=== PATIENT | female | born 1940 | race Caucasian/White ===

== ENCOUNTER → 2016-11-18 | Outpatient (REF) | payer MEDICARE ==
[2016-11-18 20:40] LABS: FOLATE > 24.0 NG/ML; VITAMIN B12 LEVEL 386 PG/ML
[2016-11-23 00:07] LABS: VITAMIN E LEVEL 11.5 mg/L (6.5-21.5)
== END ==
LOC: M LABNEURO 18:00
PROVIDERS: ATTEND Psychiatry & Neurology Neurology
DX: R27.0 Ataxia, unspecified (principal)

== ENCOUNTER → 2018-05-08 | Outpatient (REF) | payer MEDICARE | LOC: M LAB REF 14:12 | PROVIDERS: ATTEND Physician Assistant Medical | DX: R19.7 Diarrhea, unspecified (principal) ==

== ENCOUNTER 2018-11-02 07:50 | Day surgery (SDC) | payer MEDICARE ==
[~2018-11-02] VITALS: Ht 167.6 cm; Wt 79.4 kg
[~2018-11-02 07:50] MED LIST: ACET25TA12 PO; CARV6.25 PO; DORZ2SOL5 OU; ESTR62CR PV; FOLI1TAB11 PO; LIDOCAINE 2% INJ 100 MG/5 ML SDV (FOR ANES.) As Ordered ONE; MELA10TA PO; METH25IN12 IM; MULTCAP PO; NS 1,000 ML IV ONE; PANT40TA3 PO; PEG1POW PO; PROPOFOL 200 MG/20 ML VIAL As Ordered ONE; SIMV40TA2 PO
--- NOTE | 2018-11-02 09:05 | ROOR ---
Patient Name: Odette Cochran Procedure Date: 11/02/2018 8:43 AM Date of : 1940 Age: 77 Room: [facility] Gender: Female Note Status: Finalized Procedure: Colonoscopy Indications: Change in bowel habits, Constipation Providers: Chente PERSON MD Referring MD: Irene Nowak MD Requesting Provider: Medicines: Monitored Anesthesia Care Complications: No immediate complications. Procedure: Pre-Anesthesia Assessment: - The heart rate, respiratory rate, oxygen saturations, blood pressure, adequacy of pulmonary ventilation, and response to care were monitored throughout the procedure. The Colonoscope was introduced through the anus and advanced to the terminal ileum, with identification of the appendiceal orifice and IC valve. The colonoscopy was performed without difficulty. The patient tolerated the procedure well. The quality of the bowel preparation was good. Findings: The perianal and digital rectal examinations were normal. A 4 mm polyp was found in the hepatic flexure. The polyp was sessile. The polyp was removed with a cold snare. Resection and retrieval were complete. Multiple small-mouthed diverticula were found in the sigmoid colon. Internal hemorrhoids were found during retroflexion. The hemorrhoids were medium-sized. The exam was otherwise without abnormality on direct and retroflexion views. Impression: - One 4 mm polyp at the hepatic flexure, removed with a cold snare. Resected and retrieved. - Mild diverticulosis in the sigmoid colon. - Moderate Internal hemorrhoids. - The examination was otherwise normal on direct and retroflexion views. Recommendation: - Telephone endoscopist for pathology results in 2 weeks. - If the pathology report reveals adenomatous tissue, then repeat the colonoscopy for surveillance in 5 years. - Continue present medications. Chente Person MD Chente PERSON MD 11/02/2018 9:04:46 AM Electronically signed by Chente PERSON MD Number of Addenda: 0 Note Initiated On: 11/02/2018 8:43 AM Estimated Blood Loss: Estimated blood loss: none.
[2018-11-02 09:40] VITALS: BP 133/67
== END 2018-11-02 09:53 | disposition home or self-care (01) ==
LOC: M OPP 07:50
PROVIDERS: ATTEND Internal Medicine Gastroenterology
DX: D12.3 Benign neoplasm of transverse colon (principal); K64.8 Other hemorrhoids; K59.00 Constipation, unspecified; K57.30 Diverticulosis of large intestine without perforation or abscess without bleeding; Z79.899 Other long term (current) drug therapy

== ENCOUNTER → 2019-03-10 | Outpatient (REF) | payer MEDICARE ==
[~2019-03-10] MED LIST changes: -LIDOCAINE 2% INJ 100 MG/5 ML SDV (FOR ANES.) As Ordered ONE; -NS 1,000 ML IV ONE; -PROPOFOL 200 MG/20 ML VIAL As Ordered ONE
[2019-03-10 14:28] LABS: CREATININE, URINE 32.5 MG/DL; MALB URINE SIEMENS 6.5 MG/L
== END ==
LOC: M LAB REF 13:14
PROVIDERS: ATTEND Family Medicine
DX: E11.9 Type 2 diabetes mellitus without complications (principal)

== ENCOUNTER → 2019-04-01 | Outpatient (REF) | payer MEDICARE ==
[~2019-04-01] MED LIST changes: -SIMV40TA2 PO; +SIMV40TA20 PO
== END ==
LOC: M LAB REF 11:56
PROVIDERS: ATTEND Radiology Diagnostic Radiology
DX: N63.0 Unspecified lump in unspecified breast (principal)

== ENCOUNTER → 2019-04-28 | Outpatient (REF) | payer MEDICARE | LOC: M LAB REF 18:20 | PROVIDERS: ATTEND Radiology Diagnostic Radiology | DX: N63.0 Unspecified lump in unspecified breast (principal) ==

== ENCOUNTER → 2019-07-15 | Outpatient (CLI) | payer MEDICARE ==
--- NOTE | 2019-07-15 12:10 | REP ---
CHEST X-RAY: TWO VIEWS. HISTORY: Preoperative exam. COMPARISON STUDY: October 09, 2010. FINDINGS: Lungs are well inflated and clear. The pleural angles are sharp. Heart size is normal. Pulmonary vasculature is not increased. No significant bony abnormality is seen. IMPRESSION: No active disease. Electronically Signed by Dustin Reed MD 07/15/2019 12:21 P
[2019-07-15 12:43] LABS: BASO % 0.3 % (0.0-1.0); HEMATOCRIT 37.1 % (36.0-47.0); HEMOGLOBIN 12.2 g/dl (12.0-15.5); LYMPH # 1.2 10^3/uL (1.5-5.0); LYMPH % 32.4 % (24.0-44.0); MEAN CORPUSCULAR HEMOGLOBIN 36.1 pg (27.0-33.0); MEAN CORPUSCULAR HGB CONC 32.9 g/dl (32.0-36.5); MEAN CORPUSCULAR VOLUME 109.8 fl (80.0-96.0); MONO # 0.2 10^3/uL (0.0-0.8); MONO % 4.8 % (0.0-5.0); NEUTROPHILS # 2.3 10^3/uL (1.5-8.5); NEUTROPHILS % 62.2 % (36.0-66.0); PLATELET COUNT, AUTOMATED 125 10^3/uL (150-450); RED BLOOD COUNT 3.38 10^6/uL (4.00-5.40); WHITE BLOOD COUNT 3.8 10^3/uL (4.0-10.0)
[2019-07-15 13:18] LABS: ALBUMIN 4.5 GM/DL (3.2-5.2); ALT/SGPT 106 U/L (12-78); BILIRUBIN,TOTAL 0.5 MG/DL (0.2-1.0); BLOOD UREA NITROGEN 11 MG/DL (7-18); CALCIUM LEVEL 9.3 MG/DL (8.8-10.2); CARBON DIOXIDE LEVEL 31 MEQ/L (21-32); CHLORIDE LEVEL 103 MEQ/L (98-107); CREATININE FOR GFR 0.92 MG/DL (0.55-1.30); GLOMERULAR FILTRATION RATE > 60.0 (>39); GLUCOSE, FASTING 121 MG/DL (70-100); POTASSIUM SERUM 4.4 MEQ/L (3.5-5.1); SODIUM LEVEL 140 MEQ/L (136-145); TOTAL PROTEIN 7.4 GM/DL (6.4-8.2)
== END ==
LOC: M WUC 10:42
PROVIDERS: ATTEND Family Medicine
DX: Z00.00 Encounter for general adult medical examination without abnormal findings (principal)

== ENCOUNTER 2019-07-27 06:18 | Day surgery (SDC) | payer MEDICARE ==
[~2019-07-27] VITALS: Ht 165.1 cm; Wt 83.9 kg
[~2019-07-27 06:18] MED LIST changes: +EMLA CREAM 5GM (LIDOCAINE/PRILOCAINE) TOP PRN; +LIDOCAINE 1% MDV 20ML VIAL SQ PRN; +LORA-243 PO; +LR 1,000 ML IV ONE; +MELA3TAB49 PO
[2019-07-27] MEDS ORDERED: LIDOCAINE 1% MDV 20ML VIAL As Ordered ONE (07:54)
[2019-07-27] MEDS ORDERED: SODIUM BICARBONATE 8.4% INJ 50MEQ 50 ML VIAL As Ordered ONE (07:54)
[2019-07-27] MEDS ORDERED: ceFAZolin 2 GM/D5W 50 ML IV BAG (J0690 PER 500MG) As Ordered ONE (09:02)
[2019-07-27] MEDS ORDERED: HEPARIN SOD (PORCINE) 5000 UNITS/ML VIAL (J1644 PER 1000UNITS) As Ordered ONE (09:03)
[2019-07-27] MEDS ORDERED: propofoL 200 MG/20 ML VIAL As Ordered ONE (09:06)
[2019-07-27] MEDS ORDERED: ONDANSETRON 4MG/2ML VIAL (J2405) As Ordered ONE (09:06)
[2019-07-27] MEDS ORDERED: dexameTHASONE 4 MG/ML 1ML VIAL (J1100 PER 1MG) As Ordered ONE (09:06)
[2019-07-27] MEDS ORDERED: MIDAZOLAM INJ 2 MG/2 ML VIAL (J2250) As Ordered ONE (09:06)
[2019-07-27] MEDS ORDERED: fentaNYL 250 MCG/5 ML INJECTION (J3010) As Ordered ONE (09:06)
[2019-07-27] MEDS ORDERED: ROCURONIUM BROMIDE 50 MG/5 ML VIAL As Ordered ONE (09:07)
[2019-07-27] MEDS ORDERED: LIDOCAINE 2% INJ 100 MG/5 ML SDV (FOR ANES.) As Ordered ONE (09:07)
[2019-07-27] MEDS ORDERED: ceFAZolin SOD 2 GM in IV 1 EA IV ONE (09:15)
[2019-07-27] MEDS ORDERED: HEPARIN SOD (PORCINE) 5000 UNITS/ML VIAL (J1644 PER 1000UNITS) SQ ONE (09:15)
[2019-07-27] MEDS ORDERED: BUPIVACAINE HCL 0.25% 30ML VIAL As Ordered ONE (10:56)
[2019-07-27] MEDS ORDERED: LIDOCAINE 1% SDV INJ 30 ML VIAL As Ordered ONE (10:56)
--- NOTE | 2019-07-27 11:12 | REP ---
Left breast localization This procedure is performed by AUSTIN Chappell, under the direct supervision of Dr. Michael. The risks and benefits of the procedure were explained to the patient and informed consent was obtained both verbally and written. Directly prior to the start of the procedure, a formal timeout was done in the procedure room. The lateral medial approach was utilized. The marker clip was localized using mammographic guidance. The skin was prepped and draped in a sterile fashion. 5 ml of 1% lidocaine 10 mg/ml was used as a local anesthetic. A 7 cm [employer] breast lesion localization needle wire system was inserted. Followup mammographic images demonstrate good needle placement. The patient tolerated the procedure well and there were no immediate complications. Reviewed by AUSTIN Hernandez 07/27/2019 10:51 A Electronically Signed by Abdoul Michael MD 07/27/2019 11:02 A
[2019-07-27] MEDS ORDERED: ACETAMINOPHEN 1000MG 100ML IV BTL (OFIRMEV) (J0131 PER 10MG) As Ordered ONE (11:38)
[2019-07-27] MEDS ORDERED: ULTR50TA8 PO (12:55)
[2019-07-27] MEDS ORDERED: ONDANSETRON 4MG/2ML VIAL (J2405) IV PRN (13:00)
[2019-07-27] MEDS ORDERED: oxyCODONE 5MG TAB PO PRN (13:00)
[2019-07-27] MEDS ORDERED: fentaNYL 100 MCG/2 ML INJECTION (J3010) IV PRN (13:00)
[2019-07-27] MEDS ORDERED: LR 1,000 ML IV SCH (13:00)
[2019-07-27] MEDS ORDERED: METOCLOPRAMIDE INJ 10MG/2ML VIAL (J2765) IV PRN (13:00)
[2019-07-27 15:00] VITALS: BP 127/79
--- NOTE | 2019-07-27 17:19 | REP ---
Specimen radiography left breast: Single view. History: Left breast biopsy. Comparison mammography is from earlier this date. Findings: Specimen radiography demonstrates needle wire localization device centrally located in the specimen. Two needle biopsy marker devices are visible within the specimen, both of which are along the wire. Electronically Signed by Dustin Reed MD 07/28/2019 08:57 A
--- NOTE | 2019-07-27 22:11 | ROOPDOC ---
[facility] Report Of Operation Report of Operation DATE OF PROCEDURE: 07/27/19 PREPROCEDURE DIAGNOSES: left atypical ductal hyperplasia POSTPROCEDURE DIAGNOSES: left atypical ductal hyperplasia PROCEDURE: Left excisional biopsy SURGEON: Vinnie Quezada SIGNAL HELPER: Alysia Mcguire ANESTHESIA: general ESTIMATED BLOOD LOSS: Approximately 5 mL. COMPLICATIONS: none REMARKS: both clips and the wire identified in the specimen DESCRIPTION OF PROCEDURE: INDICATIONS: Ms. Cochran is a 78-year-old woman who was found to have a suspicious nodule on mammogram. This was evaluated with US and presumed sonographic correlate was found. US guided biopsy of the nodule was done and came back benign. The marker clip was found to be at different location than the nodule. Second biopsy with stereotactic approach was done later on and came back as atypical ductal hyperplasia. Pathology significance was explained to the patient and she agreed to pursue excisional biopsy of the left breast. She was medically cleared for surgery by her primary care doctor. Risks and possible complications of surgical procedure including bleeding, infection and injury to surrounding structures were explained to the patient and she wished to proceed. Consent was signed. My initials were placed on the operative site. Subcutaneous injection of 5000 units of heparin was done in Pre op. Wire localization was done by Radiology department as the clip which was placed at the time of biopsy is not visible on ultrasound, hence making it impossible for me to localize the area in operating room. Ribbon clip, which was placed during stereotactic biopsy, was the target for localization. DETAILS: Patient was taken to the operating room and placed on the operating room table. A sign in was called stating patients name, date of and the procedure to be done. Preoperative antibiotics were infused. Smooth induction of general anesthesia was done. Patients hands were extended on arm rests. Care was taken not to over extend the arms. Next, patients left breast and axilla were prepped and draped in the usual fashion. Care was taken not to displace the wire. Appropriate time out was done again prior second part of the procedure. Patients name, date of , and the procedure to be done were confirmed. Next, local anesthetic using 1% lidocaine and 0.25 % Marcaine 50/50 mix was injected at the site of planned incision at the lateral aspect of left breast along the trajectory of the wire. The incision was made with the scalpel. Subcutaneous skin flaps were raised and the guide wire was carefully pulled into the wound. Dissection was carries along the wire until the thicker portion of the wire was identified and until previously marked on the skin area of target lesion location was encountered. At this point, wider excision of the tissue surrounding the wire was done. The ribbon clip was not visible on the ultrasound. The previously placed circular clip from discordant ultrasound guided biopsy was encountered during dissection at the superior and posterior aspect of dissection. This clip was also removed with the specimen. The end of the wire was identified with intraoperative ultrasound and transection plane was chosen pass the wire extent. The excisional biopsy specimen was carefully removed from the breast keeping its proper orientation and moved to the back table where margins were marked with the surgical inking kit following the standard colors recommendations. Specimen was then placed on the grid and placed in [employer] Specimen Imaging System. The image revealed the wire and Ribbon clip. It also showed the circular clip at the periphery. The specimen was labeled with patients name and left excisional biopsy and sent to pathology. Next, the wound was irrigated thoroughly. Doctor Maynor's assistance was critical in achieving adequate hemostasis. Additional local anesthetic was injected into surrounding tissues. space was approximated with 3-0 Vicryl. The dermis was closed with 3-0 Monocryl. Surgical glue was placed over the incision. Doctor Maynor's assistance was necessary to progress expeditiously through the case and to decrease anesthesia time. Patient emerged from the anesthesia without any problems. Fluffs were placed over the operative site and patients chest was wrapped snuggly in the SOCORRO wrap. Sponge and instrument counts were done and were correct. Patient tolerated procedure well and was taken to recovery unit in stable condition. VINNIE QUEZADA DO Jul 27, 2019 18:32
== END 2019-07-27 15:30 | disposition home or self-care (01) ==
LOC: M SDC 06:18
PROVIDERS: ATTEND Surgery
DX: N60.82 Other benign mammary dysplasias of left breast (principal); I10 Essential (primary) hypertension; M06.9 Rheumatoid arthritis, unspecified; K21.9 Gastro-esophageal reflux disease without esophagitis; K44.9 Diaphragmatic hernia without obstruction or gangrene; Z79.899 Other long term (current) drug therapy
CPT/HCPCS: 19125; 36415; 86850; 86900; 86901; 88305; J0131; J0690; J1100; J1644; J2250; J2405; J3010

== ENCOUNTER → 2020-03-30 | Outpatient (CLI) | payer MEDICARE ==
[~2020-03-30] MED LIST changes: -EMLA CREAM 5GM (LIDOCAINE/PRILOCAINE) TOP PRN; -LIDOCAINE 1% MDV 20ML VIAL SQ PRN; -LR 1,000 ML IV ONE; +PANT40TA29 PO; -PANT40TA3 PO; +ULTR50TA8 PO
--- NOTE | 2020-03-31 08:48 | REPMRS ---
Patient History The patient states she had a clinical breast exam in March 2020.Patient has history of high-risk lesion on a previous biopsy at age 78 and has history of hyperplasia atypia in the left breast at age 78. No known family history of cancer. High risk radio exam breast specimen of the left breast, July 27, 2019. High risk localization of breast nodule of the left breast, July 27, 2019. Digital Woman Screen Mammo: March 30, 2020 - Exam #: [id number] Bilateral CC and MLO view(s) were taken. Technologist: Libby Ford, Technologist Prior study comparison: March 2019, digital mammo diagnostic bilateral, performed at [facility]. March 27, 2018, bilateral digital mammo screening bilat, performed at [facility]. FINDINGS: The breast tissue is heterogeneously dense. This may lower the sensitivity of mammography. The Volpara volumetric breast density category is: C. The previously noted nodule in the upper outer quadrant of the left breast is no longer apparent. There is a moderate amount of heterogeneously dense fibroglandular tissue which is fairly symmetric. There is no interval development of dominant mass, architectural distortion, or grouped microcalcification typical of malignancy. There has been no change in the appearance of the mammogram from the prior studies. 3-D tomosynthesis shows no additional findings. Assessment: BI-RADS/ACR category 2 mammogram. Benign Findings. Recommendation Routine screening mammogram of both breasts in 1 year (for women over age 40). This patient's [facility] Lifetime Breast Cancer RIsk is estimated at 15.5 %. This mammogram was interpreted with the aid of an FDA-approved computer-aided dectection system. Electronically Signed By: Eliel Reed MD 03/30/20 [id number]
== END ==
LOC: M WHC 11:10
PROVIDERS: ATTEND Nurse Practitioner Family
DX: Z01.419 Encounter for gynecological examination (general) (routine) without abnormal findings (principal); Z12.31 Encounter for screening mammogram for malignant neoplasm of breast; Z12.12 Encounter for screening for malignant neoplasm of rectum
CPT/HCPCS: 77063; 77067; 82270; G0101

== ENCOUNTER 2020-09-26 13:07 | Emergency (ER) | payer MEDICARE ==
[~2020-09-26] VITALS: Ht 167.6 cm; Wt 81.8 kg
[~2020-09-26 13:07] MED LIST changes: -PEG1POW PO; +POLY17PO18 PO
[2020-09-26] MEDS ORDERED: ONDANSETRON 4MG/2ML VIAL IV ONE (13:50)
[2020-09-26] MEDS ORDERED: AZITHROMYCIN INJ 500 MG, VIAL MATE ADAPTER 1 EACH in NS 250 ML IV ONE (14:35)
[2020-09-26] MEDS ORDERED: cefTRIAXone SOD 2 GM in D5W MINI-BAG PLUS 50 ML IV ONE (14:35)
[2020-09-26] MEDS ORDERED: MELA10CA2 PO (14:39)
[2020-09-26] MEDS ORDERED: PRED5TA PO (14:39)
[2020-09-26] MEDS ORDERED: LEUC10TA PO (14:39)
[2020-09-26] MEDS ORDERED: VITMTA PO (14:39)
[2020-09-26 15:06] LABS: MEAN CORPUSCULAR HEMOGLOBIN 39.9 pg (27.0-33.0); MEAN CORPUSCULAR HGB CONC 34.9 g/dl (32.0-36.5); RED BLOOD COUNT 1.63 10^6/uL (4.00-5.40); WHITE BLOOD COUNT 1.4 10^3/uL (4.0-10.0)
[2020-09-26 15:12] LABS: RSV AMPLIFICATION NEGATIVE (NEGATIVE)
[2020-09-26 15:19] LABS: HEMATOCRIT 18.6 % (36.0-47.0); HEMOGLOBIN 6.5 g/dl (12.0-15.5); MEAN CORPUSCULAR VOLUME 114.1 fl (80.0-96.0); PLATELET COUNT, AUTOMATED 43 10^3/uL (150-450)
[2020-09-26 15:22] LABS: INR 1.01; PROTHROMBIN TIME 13.5 SECONDS (12.5-14.3)
[2020-09-26 15:23] LABS: PARTIAL THROMBOPLASTIN TIME 25.2 SECONDS (24.2-38.5)
[2020-09-26 15:26] LABS: ALBUMIN 3.9 GM/DL (3.2-5.2); ALT/SGPT 17 U/L (12-78); BILIRUBIN,DIRECT 0.1 MG/DL (0.0-0.2); BILIRUBIN,TOTAL 0.4 MG/DL (0.2-1.0); BLOOD UREA NITROGEN 9 MG/DL (7-18); CALCIUM LEVEL 7.4 MG/DL (8.8-10.2); CARBON DIOXIDE LEVEL 28 MEQ/L (21-32); CHLORIDE LEVEL 108 MEQ/L (98-107); GLOMERULAR FILTRATION RATE > 60.0 (>39); GLUCOSE, FASTING 145 MG/DL (70-100); LIPASE 93 U/L (73-393); POTASSIUM SERUM 3.2 MEQ/L (3.5-5.1); SODIUM LEVEL 143 MEQ/L (136-145)
[2020-09-26 15:52] LABS: LYMPHOCYTES 70 % (16-44); NEUTROPHILS 18 % (28-66)
[2020-09-26 15:53] LABS: ATYPICAL LYMPH 5 % (0-5); BLAST CELLS 7 % (0-0); PLATELET ESTIMATE DECREASED (NORMAL)
[2020-09-26 15:55] LABS: OVALOCYTES 1+; TEAR DROP CELLS 1+
[2020-09-26 15:56] LABS: POIKILOCYTOSIS 1+
[2020-09-26 16:27] LABS: FERRITIN 364 NG/ML (8-252); IRON (FE) 269 UG/DL (50-170); PERCENT SATURATION 90.9 % (13.2-45.0); TOTAL IRON BINDING CAPACITY 296 UG/DL (250-450)
[2020-09-26 17:20] LABS: VITAMIN B12 LEVEL 232 PG/ML (247-911)
[2020-09-26 17:33] VITALS: BP 137/68
--- NOTE | 2020-09-26 17:39 | ECGEPIP ---
[facility] - ED Test Date: 2020-09-26 Pat Name: LORENA GALVAN Department: Room: - Gender: Female Wood [employer]: CAS : 1940 Requested By: Frederic Gee Order Number: [id number] Reading MD: Hilary Melvin Measurements Intervals [place] Rate: 71 P: 56 [place]: 136 QRS: 13 QRSD: 80 T: 38 QT: 442 QTc: 480 Interpretive Statements Normal sinus rhythm prolonged qtc NSTTW abnormalities No prior Electronically Signed on 09-26-2020 17:39:40 EDT by Hilary Melvin
[2020-09-26 17:47] VITALS: BP 135/66
[2020-09-26 17:48] LABS: FOLATE > 24.0 NG/ML (>5.4)
[2020-09-26 18:32] VITALS: BP 150/71
[2020-09-26 19:42] VITALS: BP 132/69
== END 2020-09-26 19:44 | disposition short-term general hospital (02) ==
LOC: M ED 13:07
DX: C95.00 Acute leukemia of unspecified cell type not having achieved remission (principal); D61.818 Other pancytopenia; R79.9 Abnormal finding of blood chemistry, unspecified; E78.5 Hyperlipidemia, unspecified; Z79.52 Long term (current) use of systemic steroids; Z79.899 Other long term (current) drug therapy
CPT/HCPCS: 36430; 80048; 80076; 82607; 82728; 82746; 83550; 83690; 85025; 85049; 85055; 85610; 85730; 86850; 86900; 86901; 86920; 87631; 93005; 93041; 96374; 99285; J2405; P9016

== ENCOUNTER → 2021-01-24 | Outpatient (CLI) | payer MEDICARE ==
[~2021-01-24] MED LIST changes: +ACET650T61 PO; +ACYC1TAB; +COLA100C5 PO; +COVI30VI IM; +DICL1GEL3; +LEUC10TA PO; +LEVO500T3; +LIDOCAINE 1% MDV 20ML VIAL As Ordered ONE; +LOPE1CAP5; +MEGE40SU5; +MELA10CA2 PO; +MIDAZOLAM INJ 2MG/2ML VIAL (J2250 PER 1MG) As Ordered ONE; +MIDO5TA; +NS 1,000 ML IV SCH; +ONDA8TAB10 PO; +POSA100T; +PRED5TA PO; +PROBCAP14 PO; +PROC10TA4 PO; +SERT50TA29; +VENC100T PO; +VITMTA PO; +ceFAZolin 2 GM/D5W 50 ML IV BAG (J0690 PER 500MG) As Ordered ONE; +ceFAZolin SOD 2 GM in IV 1 EA IV ONE; +diphenhydrAMINE 50MG/ML VIAL (J1200) As Ordered ONE; +fentaNYL 100 MCG/2 ML INJECTION (J3010) As Ordered ONE
--- NOTE | 2021-01-24 14:42 | IRHP ---
[facility] IR Pre-Procedure H & P General Date of Service: Jan 24, 2021 Procedure: Same Day Surgery Interval History and Physical I have seen the patient and reviewed last H & P performed within 30 days. There is no significant interval change. History of Present Illness Chief Complaint The patient is a 80-year-old female admitted with a reason for visit of Leukemia. PRE-PROCEDURE DIAGNOSIS: Leukemia HEART: Normal rate. LUNGS: Normal breathing at rest. ASA Classification ASA Classification: II-Mild systemic disease Mallampati Score: II NPO: Yes Problems with prior sedation: No Obstructive Sleep Apnea: No Plan moderate sedation Allergies Coded Allergies: transparent dressing (Verified Allergy, Intermediate, rash, 07/20/19) ENVIROMENTAL (Verified Allergy, Unknown, 07/20/19) Home Medications Scheduled Acetaminophen (Tylenol Arthritis), 500 MG PO QHS, (Reported) Docusate Sodium (Colace), 1 CAP PO DAILY, (Reported) Lactobacillus Acidophilus (Probiotic), 1 CAP PO DAILY, (Reported) Pantoprazole Sodium (Pantoprazole Sodium), 40 MG PO DAILY, (Reported) Miscellaneous Medications Covid-19 Vacc, Mrna(DNA Direct)/Pf (DNA Direct Covid19 Vacc (Unapprov)), 30 MCG IM, (Reported) Discontinued Medications Acyclovir (Acyclovir), (Reported) Discontinued Reason: Pt states not taking Diclofenac Sodium (Diclofenac Sodium), (Reported) Discontinued Reason: Pt states not taking Levofloxacin (Levofloxacin), (Reported) Discontinued Reason: Pt states not taking Loperamide HCl (Loperamide), (Reported) Discontinued Reason: PCP discontinued med Midodrine HCl (Midodrine HCl), (Reported) Discontinued Reason: Pt states not taking Ondansetron HCl (Ondansetron HCl), 8 MG PO Q8HP PRN for NAUSEA OR VOMITING Discontinued Reason: Pt states not taking Posaconazole (Posaconazole), (Reported) Discontinued Reason: Pt states not taking Prochlorperazine Maleate (Prochlorperazine Maleate), 10 MG PO Q8HP PRN for NAUSEA OR VOMITING Discontinued Reason: Pt states not taking Sertraline HCl (Sertraline HCl), (Reported) Discontinued Reason: Pt states not taking VS, I&O, 24H, Fishbone Vital Signs/I&O Vital Signs Date Time Temp Pulse Resp B/P (MAP) Pulse Ox O2 Delivery O2 Flow Rate FiO2 01/24/21 13:37 97.6 98 20 99 Room Air PATIENCE WHITE MD Jan 24, 2021 14:42
[2021-01-24 17:40] VITALS: BP 138/60
--- NOTE | 2021-01-25 16:15 | IRPON ---
IR Postoperative Note Date Of Procedure: Jan 24, 2021 Time Of Procedure: 16:00 IR Postoperative Note IR Ultrasound and fluoroscopy guided port placement IR Ultrasound of the neck. IR Moderate sedation. Clinical indication: Leukemia. Physician: Dr. Phelan. Procedure: The patient was advised of the benefits, risks, and alternatives of the procedure and informed consent was obtained. A time-out was performed with verification of the patient's name, MRN, site of procedure and type of procedure to be performed. The patient was positioned in the supine position on the angiographic table. The site was prepped and draped in the usual sterile fashion. Moderate sedation was performed by the physician including the presence of an independent trained RN who assisted and monitored the patient's level of consciousness and physiologic status. Following the administration of fentanyl and Versed , the physician spent 45 minutes of continuous face to face time with the patient. Ultrasound of the neck reveals a patent and compressible right internal jugular vein. A client integration manager radiograph reveals no gross abnormality. The neck and anterior chest wall were anesthetized with lidocaine. The right internal jugular vein was accessed using a microintroducer needle under ultrasound guidance, via a lateral approach. An 018 wire was advanced into the superior vena cava, the needle was removed and a microsheath was placed. An Amplatz wire was then passed into the inferior vena cava. An incision at the internal jugular vein access site and anterior chest wall were made using a scalpel. An incision was made at the anterior chest wall. A small pocket was created using a combination of blunt and sharp dissection. A tunneling device was then used to pass the catheter from the pocket to the neck puncture site. An 8- Setswana Angio [employer] Smart power port was then positioned in the pocket. The catheter was then measured and cut. The introducer sheath was exchanged for a peel-away sheath. The catheter was passed through the peel-away sheath into the internal jugular vein and the peel-away sheath was removed. The port tip was positioned at the cavoatrial junction. The port was then accessed with a Cisneros needle. The port flushes and aspirates well. The puncture site in the neck was closed. The chest wall incision was then closed with 2-0 Vicryl and 4-0 Monocryl. Glue and Steri- Strips were applied. A sterile dressing was then applied. The patient tolerated the procedure well and was returned to the PRU in stable condition. Estimated blood loss: <5 ml. Complications: None. Conclusion: 1. Successful placement of an 8-Setswana Angio dynamics Smart power port via the right internal jugular vein. The port is ready for immediate use. 2. Patient to follow up in IR clinic in 2 weeks. Thank you for this referral. PATIENCE PHELAN MD Jan 25, 2021 16:15
== END ==
LOC: M IRPRO 11:28
PROVIDERS: ATTEND Specialist
DX: C95.90 Leukemia, unspecified not having achieved remission (principal); Z91.09 Other allergy status, other than to drugs and biological substances; Z91.048 Other nonmedicinal substance allergy status
CPT/HCPCS: 36561; 99152; 99153; C1769; C1788; C1894; J0690; J1200; J1642; J1644; J2250; J3010

== ENCOUNTER → 2021-02-13 | Outpatient (POV) | payer MEDICARE ==
[~2021-02-13] VITALS: Ht 165.1 cm; Wt 77.7 kg
[~2021-02-13] MED LIST changes: +ALLO300T2 PO; -LIDOCAINE 1% MDV 20ML VIAL As Ordered ONE; -MIDAZOLAM INJ 2MG/2ML VIAL (J2250 PER 1MG) As Ordered ONE; -NS 1,000 ML IV SCH; -ceFAZolin 2 GM/D5W 50 ML IV BAG (J0690 PER 500MG) As Ordered ONE; -ceFAZolin SOD 2 GM in IV 1 EA IV ONE; -diphenhydrAMINE 50MG/ML VIAL (J1200) As Ordered ONE; -fentaNYL 100 MCG/2 ML INJECTION (J3010) As Ordered ONE
[2021-02-13 12:47] VITALS: BP 139/84
--- NOTE | 2021-02-15 12:46 | IRPN ---
[facility] IR Progress Note IR Progress Note DATE: Feb 13, 2021 FOLLOW-UP: Doing well status post port placement. Patient denies fevers, chills, pain or discharge at site. Port used without any issues. ON EXAMINATION: Port site appears to be healing well. No redness, swelling or fluctuance at the site. IMPRESSION: Doing well status post port placement. No further follow-up scheduled unless initiated by patient and/or referring provider. Thank you for this referral Allergies Coded Allergies: transparent dressing (Verified Allergy, Intermediate, rash, 07/20/19) ENVIROMENTAL (Verified Allergy, Unknown, 07/20/19) VS,Fishbone, I+O VS, Fishbone, I+O Vital Signs Date Time Temp Pulse Resp B/P (MAP) Pulse Ox O2 Delivery O2 Flow Rate FiO2 02/13/21 12:47 97.5 102 20 139/84 (102) 96 Room Air PATIENCE WHITE MD Feb 15, 2021 12:46
== END ==
LOC: M IRPOV 12:16
PROVIDERS: ATTEND Radiology Diagnostic Radiology
DX: Z45.2 Encounter for adjustment and management of vascular access device (principal)

== ENCOUNTER 2021-03-14 16:29 | Emergency (ER) | payer MEDICARE, BC ==
[~2021-03-14] VITALS: Ht 165.1 cm; Wt 75.5 kg
[~2021-03-14 16:29] MED LIST changes: +HYDR-3363 PO; -LEVO500T3; +LEVO500T4; +ONDA-84 PO; -ONDA8TAB10 PO; -PROC10TA4 PO; +PROC10TA5 PO; +SERT-141 PO
[2021-03-14] MEDS ORDERED: SODIUM CHLORIDE 0.9% INJ 10 ML SYR IV PRN (18:15)
[2021-03-14 18:25] LABS: HEMATOCRIT 26.7 % (36.0-47.0); HEMOGLOBIN 9.2 g/dl (12.0-15.5); MEAN CORPUSCULAR HEMOGLOBIN 34.8 pg (27.0-33.0); MEAN CORPUSCULAR HGB CONC 34.5 g/dl (32.0-36.5); MEAN CORPUSCULAR VOLUME 101.1 fl (80.0-96.0); RED BLOOD COUNT 2.64 10^6/uL (4.00-5.40); WHITE BLOOD COUNT 1.5 10^3/uL (4.0-10.0)
[2021-03-14 18:30] LABS: PLATELET COUNT, AUTOMATED 42 10^3/uL (150-450)
[2021-03-14 19:17] LABS: BLOOD UREA NITROGEN 13 MG/DL (7-18); CALCIUM LEVEL 9.2 MG/DL (8.8-10.2); CARBON DIOXIDE LEVEL 25 MEQ/L (21-32); CHLORIDE LEVEL 109 MEQ/L (98-107); CREATININE FOR GFR 0.81 MG/DL (0.55-1.30); GLOMERULAR FILTRATION RATE > 60.0 (>39); GLUCOSE, FASTING 92 MG/DL (70-100); MAGNESIUM LEVEL 1.7 MG/DL (1.8-2.4); POTASSIUM SERUM 3.8 MEQ/L (3.5-5.1); SODIUM LEVEL 141 MEQ/L (136-145)
[2021-03-14 19:44] LABS: LYMPHOCYTES 99 % (16-44); NEUTROPHILS 1 % (28-66)
[2021-03-14 19:45] LABS: OVALOCYTES 1+; PLATELET ESTIMATE MARKED DECREASE (NORMAL); POIKILOCYTOSIS 1+
[2021-03-14] MEDS ORDERED: MAGNESIUM OXIDE 400MG TAB (MAG-OX) PO ONE (21:55)
[2021-03-14 22:29] VITALS: BP 122/70
[2021-03-22] MEDS ORDERED: ZOVI5CRE4 TOP (13:38)
[2021-03-22] MEDS ORDERED: FLUC100T3 PO (13:41)
[2021-05-11] MEDS ORDERED: AMIO200T49 PO (11:04)
[2021-06-04] MEDS ORDERED: AMIO200T37 PO (08:57)
== END 2021-03-14 22:33 | disposition home or self-care (01) ==
LOC: M ED 16:29
DX: I49.9 Cardiac arrhythmia, unspecified (principal); E83.42 Hypomagnesemia; C92.01 Acute myeloblastic leukemia, in remission; I10 Essential (primary) hypertension; E78.5 Hyperlipidemia, unspecified; J30.89 Other allergic rhinitis; Z87.09 Personal history of other diseases of the respiratory system; Z79.899 Other long term (current) drug therapy; Z91.89 Other specified personal risk factors, not elsewhere classified

== ENCOUNTER → 2021-04-02 | Outpatient (CLI) | payer MEDICARE ==
[~2021-04-02] MED LIST changes: +AMIO200T37 PO; +AMIO200T49 PO; +FLUC100T3 PO; +ZOVI5CRE4 TOP
== END ==
LOC: M WHC 12:34
PROVIDERS: ATTEND Surgery
DX: Z12.31 Encounter for screening mammogram for malignant neoplasm of breast (principal); N60.92 Unspecified benign mammary dysplasia of left breast; Z92.21 Personal history of antineoplastic chemotherapy; Z86.018 Personal history of other benign neoplasm; R92.1 Mammographic calcification found on diagnostic imaging of breast

== ENCOUNTER → 2021-04-02 | Outpatient (CLI) | payer MEDICARE | LOC: M PLAIMG 15:04 | PROVIDERS: ATTEND Nurse Practitioner Family | DX: M51.36 Other intervertebral disc degeneration, lumbar region (principal); M85.852 Other specified disorders of bone density and structure, left thigh; Z96.643 Presence of artificial hip joint, bilateral ==

== ENCOUNTER → 2021-04-05 | Outpatient (CLI) | payer MEDICARE, BC ==
[~2021-04-05] MED LIST changes: -AMIO200T37 PO; -AMIO200T49 PO; +FLUC100T PO; -FLUC100T3 PO; +LEVO500T3; -LEVO500T4; +LIDOCAINE 1% MDV 20ML VIAL As Ordered ONE; -ONDA-84 PO; +ONDA8TAB10 PO; +PROC10TA4 PO; -PROC10TA5 PO
[2021-04-05 12:15] LABS: HEMATOCRIT 23.7 % (36.0-47.0); MEAN CORPUSCULAR HEMOGLOBIN 35.7 pg (27.0-33.0); MEAN CORPUSCULAR HGB CONC 33.8 g/dl (32.0-36.5); MEAN CORPUSCULAR VOLUME 105.8 fl (80.0-96.0); RED BLOOD COUNT 2.24 10^6/uL (4.00-5.40); WHITE BLOOD COUNT 1.7 10^3/uL (4.0-10.0)
[2021-04-05 12:58] LABS: PLATELET COUNT, AUTOMATED 19 10^3/uL (150-450)
[2021-04-05 13:00] LABS: ANISOCYTOSIS 1+; LYMPHOCYTES 74 % (16-44); NEUTROPHILS 26 % (28-66); PLATELET ESTIMATE MARKED DECREASE (NORMAL)
[2021-04-05 14:00] VITALS: BP 103/57
--- NOTE | 2021-04-05 17:56 | REP ---
INDICATION: LEUKEMIA. COMPARISON: None. TECHNIQUE: The procedure was procedure performed under the direct supervision of Dr. Lozano. The risks and benefits of the procedure were explained to the patient and informed consent was obtained. The right iliac bone was localized using CT guidance. The skin was prepped and draped in a sterile fashion. 6 mL of 1% lidocaine was used as local anesthetic. Using CT guidance an 11 gauge bone marrow biopsy system was inserted. 10 mL of marrow fluid was withdrawn. One core biopsy sample was then obtained. Estimated blood loss: Less than 1 mL The patient tolerated the procedure well and there were no immediate complications. After the appropriate amount to monitored convalescence the patient was discharged from the department. FINDINGS: None IMPRESSION: CT-guided right iliac bone marrow biopsy. <Electronically signed by Don Hull > 04/05/21 [id number] <Electronically signed by Mich Lozano > 04/05/21 [id number]
== END ==
LOC: M IRPRO 11:44
PROVIDERS: ATTEND Specialist
DX: C95.90 Leukemia, unspecified not having achieved remission (principal)

== ENCOUNTER → 2021-08-09 | Outpatient (CLI) | payer MEDICARE, BC ==
[~2021-08-09] MED LIST changes: +AMIO200T37 PO; +AMIO200T49 PO; -FLUC100T PO; +FLUC100T3 PO; -LEVO500T3; +LEVO500T4; +ONDA-84 PO; -ONDA8TAB10 PO; +PERC5TAB12 PO; -PROC10TA4 PO; +PROC10TA5 PO
[2021-08-09 13:08] LABS: HEMATOCRIT 30.7 % (36.0-47.0); HEMOGLOBIN 10.2 g/dl (12.0-15.5); MEAN CORPUSCULAR HEMOGLOBIN 36.8 pg (27.0-33.0); MEAN CORPUSCULAR HGB CONC 33.2 g/dl (32.0-36.5); MEAN CORPUSCULAR VOLUME 110.8 fl (80.0-96.0); RED BLOOD COUNT 2.77 10^6/uL (4.00-5.40); WHITE BLOOD COUNT 1.9 10^3/uL (4.0-10.0)
[2021-08-09 13:11] LABS: PLATELET COUNT, AUTOMATED 85 10^3/uL (150-450)
[2021-08-09 13:34] VITALS: BP 141/64
[2021-08-09 13:51] LABS: ATYPICAL LYMPH 1 % (0-5); EOSINOPHILS 1 % (0-3); LYMPHOCYTES 52 % (16-44); MONOCYTES 5 % (0-5); NEUTROPHILS 39 % (28-66)
[2021-08-09 13:52] LABS: OVALOCYTES 2+; TEAR DROP CELLS 1+
[2021-08-09 13:53] LABS: MICROCYTOSIS 1+; PLATELET ESTIMATE DECREASED (NORMAL)
== END ==
LOC: M IRPRO 12:02
PROVIDERS: ATTEND Specialist
DX: C92.00 Acute myeloblastic leukemia, not having achieved remission (principal)

== ENCOUNTER → 2021-09-05 | Outpatient (REF) | payer MEDICARE, BC ==
[~2021-09-05] MED LIST changes: -LIDOCAINE 1% MDV 20ML VIAL As Ordered ONE
== END ==
LOC: M LAB REF 11:34
PROVIDERS: ATTEND Family Medicine
DX: I48.0 Paroxysmal atrial fibrillation (principal)

== ENCOUNTER → 2021-09-12 | Outpatient (CLI) | payer MEDICARE, BC | LOC: M WUC 14:38 | PROVIDERS: ATTEND Physician Assistant | DX: I48.0 Paroxysmal atrial fibrillation (principal) ==

== ENCOUNTER 2021-09-26 10:59 | Outpatient (CLI) | payer MEDICARE, BC ==
[~2021-09-26] VITALS: Ht 167.6 cm; Wt 84.1 kg
[2021-09-26] MEDS ORDERED: TIXAGEVIMAB/CILGAVIMAB (EVUSHELD) 150MG-150MG 3ML VIAL (EUA) IM NO SITE ONE (11:30)
[2021-09-26 11:33] VITALS: BP 173/77
[2021-09-26 12:36] VITALS: BP 127/66
== END 2021-09-26 12:40 | disposition home or self-care (01) ==
LOC: M INFU 10:59
PROVIDERS: ATTEND Internal Medicine Hematology & Oncology
DX: C92.50 Acute myelomonocytic leukemia, not having achieved remission (principal); Z88.1 Allergy status to other antibiotic agents

== ENCOUNTER → 2021-10-12 | Outpatient (CLI) | payer MEDICARE, BC ==
[~2021-10-12] MED LIST changes: +DOXY100T27
== END ==
LOC: M RAD 07:32
PROVIDERS: ATTEND Orthopaedic Surgery Hand Surgery
DX: S93.402D Sprain of unspecified ligament of left ankle, subsequent encounter (principal); W18.30XD Fall on same level, unspecified, subsequent encounter

== ENCOUNTER → 2022-03-04 | Outpatient (CLI) | payer MEDICARE, BC ==
[~2022-03-04] MED LIST changes: +LEVO1TAB39; -LEVO500T4
[2022-03-04 18:59] LABS: ALBUMIN 4.2 GM/DL (3.2-5.2); BILIRUBIN,TOTAL 0.3 MG/DL (0.2-1.0); CALCIUM LEVEL 9.4 MG/DL (8.8-10.2); CREATININE FOR GFR 1.05 MG/DL (0.55-1.30); GLOMERULAR FILTRATION RATE 53.8 (>39); MAGNESIUM LEVEL 2.1 MG/DL (1.8-2.4); POTASSIUM SERUM 4.4 MEQ/L (3.5-5.1); THYROID STIMULATING HORMONE 1.97 uIU/ML (0.358-3.740); TOTAL PROTEIN 7.5 GM/DL (6.4-8.2)
== END ==
LOC: M WUC 12:57
PROVIDERS: ATTEND Physician Assistant
DX: I48.0 Paroxysmal atrial fibrillation (principal)

== ENCOUNTER → 2022-03-13 | Outpatient (CLI) | payer MEDICARE, BC | LOC: M PLAIMG 10:29 | PROVIDERS: ATTEND Physician Assistant | DX: I48.0 Paroxysmal atrial fibrillation (principal) ==

== ENCOUNTER → 2022-07-24 | Outpatient (CLI) | payer MEDICARE, BC ==
[~2022-07-24] MED LIST changes: -MELA10TA PO; +MELATONIN CR10 MG PO; +NETA2.5D2 OP; +XALA0.007 OP
== END ==
LOC: M WHC 10:16
PROVIDERS: ATTEND Nurse Practitioner Women's Health
DX: Z12.31 Encounter for screening mammogram for malignant neoplasm of breast (principal)

== ENCOUNTER → 2022-08-05 | Outpatient (CLI) | payer MEDICARE, BC ==
[2022-08-05 17:34] LABS: ALBUMIN 4.2 G/DL (3.2-5.2); BILIRUBIN,TOTAL 0.4 MG/DL (0.3-1.2); CALCIUM LEVEL 9.2 MG/DL (8.3-10.6); CREATININE FOR GFR 0.98 MG/DL (0.55-1.30); GLOMERULAR FILTRATION RATE 58.3 (>39); MAGNESIUM LEVEL 1.8 MG/DL (1.8-2.4); POTASSIUM SERUM 4.4 MMOL/L (3.5-5.1); TOTAL PROTEIN 7.4 G/DL (5.7-8.2)
[2022-08-05 17:37] LABS: THYROID STIMULATING HORMONE 3.404 uIU/ML (0.55-4.78)
== END ==
LOC: M PLALAB 12:37
PROVIDERS: ATTEND Physician Assistant
DX: I48.0 Paroxysmal atrial fibrillation (principal)

== ENCOUNTER → 2022-09-19 | Outpatient (REF) | payer MEDICARE, BC | LOC: M LAB REF 16:50 | PROVIDERS: ATTEND Nurse Practitioner Family | DX: R30.0 Dysuria (principal); R31.9 Hematuria, unspecified ==

== ENCOUNTER → 2022-10-16 | Outpatient (CLI) | payer MEDICARE, BC ==
[~2022-10-16] MED LIST changes: +BACTDSTA; +TRAZ-252
[2022-10-16 18:39] LABS: BASO % 0.4 % (0.0-1.0); HEMATOCRIT 36.9 % (36.0-47.0); LYMPH # 1.3 10^3/uL (1.5-5.0); LYMPH % 49.8 % (24.0-44.0); MEAN CORPUSCULAR HEMOGLOBIN 34.5 pg (27.0-33.0); MEAN CORPUSCULAR HGB CONC 32.5 g/dl (32.0-36.5); MONO # 0.2 10^3/uL (0.0-0.8); MONO % 6.8 % (2.0-8.0); NEUTROPHILS # 1.1 10^3/uL (1.5-8.5); NEUTROPHILS % 42.6 % (36.0-66.0); RED BLOOD COUNT 3.48 10^6/uL (4.00-5.40); WHITE BLOOD COUNT 2.6 10^3/uL (4.0-10.0)
[2022-10-16 18:44] LABS: LDH LACTATE DEHYDROGENASE 240 U/L (120-246)
[2022-10-16 18:45] LABS: ALKALINE PHOSPHATASE 106 U/L (46-116); ALT/SGPT 71 U/L (7.0-40); AST/SGOT 45 U/L (<34); BILIRUBIN,TOTAL 0.4 MG/DL (0.3-1.2); BLOOD UREA NITROGEN 13 MG/DL (9-23); CALCIUM LEVEL 9.8 MG/DL (8.3-10.6); CARBON DIOXIDE LEVEL 28 MMOL/L (20-31); CHLORIDE LEVEL 106 MMOL/L (98-107); CREATININE FOR GFR 0.91 MG/DL (0.55-1.30); GLOMERULAR FILTRATION RATE > 60.0 (>39); GLUCOSE, FASTING 92 MG/DL (74-106); POTASSIUM SERUM 4.1 MMOL/L (3.5-5.1); SODIUM LEVEL 137 MMOL/L (136-145); TOTAL PROTEIN 6.7 G/DL (5.7-8.2)
[2022-10-16 18:54] LABS: PLATELET COUNT, AUTOMATED 74 10^3/uL (150-450)
== END ==
LOC: M PLALAB 15:29
PROVIDERS: ATTEND Internal Medicine
DX: C92.00 Acute myeloblastic leukemia, not having achieved remission (principal)

== ENCOUNTER 2022-11-19 13:43 | Emergency (ER) | payer MEDICARE, BC ==
[~2022-11-19] VITALS: Ht 167.6 cm; Wt 85.5 kg
[~2022-11-19 13:43] MED LIST changes: +DICL100G10; -DICL1GEL3; +HYDR-3363; +[UNRECOGNIZED DRUG - CODE] IV
[2022-11-19] MEDS ORDERED: NS 500 ML IV ONE ×2 (14:35→20:00)
[2022-11-19 16:04] LABS: HEMATOCRIT 31.3 % (36.0-47.0); HEMOGLOBIN 10.5 g/dl (12.0-15.5); MEAN CORPUSCULAR HEMOGLOBIN 34.1 pg (27.0-33.0); MEAN CORPUSCULAR HGB CONC 33.5 g/dl (32.0-36.5); MEAN CORPUSCULAR VOLUME 101.6 fl (80.0-96.0); RED BLOOD COUNT 3.08 10^6/uL (4.00-5.40); WHITE BLOOD COUNT 4.3 10^3/uL (4.0-10.0)
[2022-11-19 16:15] LABS: PLATELET COUNT, AUTOMATED 33 10^3/uL (150-450)
[2022-11-19 16:18] LABS: LYMPHOCYTES 15 % (16-44); MONOCYTES 3 % (0-5); NEUTROPHILS 80 % (28-66); PLATELET ESTIMATE MARKED DECREASE (NORMAL)
[2022-11-19 16:26] LABS: ALBUMIN 3.1 G/DL (3.2-5.2); BILIRUBIN,DIRECT 0.4 MG/DL (<0.4); BILIRUBIN,TOTAL 0.9 MG/DL (0.3-1.2); CALCIUM LEVEL 8.5 MG/DL (8.3-10.6); CREATININE FOR GFR 1.3 MG/DL (0.55-1.30); GLOMERULAR FILTRATION RATE 42.1 (>39); POTASSIUM SERUM 3.8 MMOL/L (3.5-5.1); TOTAL PROTEIN 6.2 G/DL (5.7-8.2)
[2022-11-19] MEDS ORDERED: ACETAMINOPHEN 1000MG 100ML IV BAG IV ONE (18:00)
[2022-11-19] MEDS ORDERED: LevoFLOXacin IV 750 MG in IV 1 EA IV ONE (18:00)
[2022-11-19] MEDS ORDERED: MORPHINE 2 MG/ML 1ML VIAL IV PRN (18:00)
[2022-11-19 22:55] VITALS: BP 91/50; TEMP 98.6; O2SAT 95
[2022-11-19] MEDS ORDERED: MORPHINE 2 MG/ML 1ML VIAL IV ONE (23:10)
== END 2022-11-19 23:01 | disposition home or self-care (01) ==
LOC: M ED 13:43 → EDBD 13:43 → M ED 23:01
DX: S32.010A Wedge compression fracture of first lumbar vertebra, initial encounter for closed fracture (principal); W19.XXXA Unspecified fall, initial encounter; Y92.003 Bedroom of unspecified non-institutional (private) residence as the place of occurrence of the external cause; Y93.89 Activity, other specified; Y99.8 Other external cause status; N39.0 Urinary tract infection, site not specified; D69.6 Thrombocytopenia, unspecified; I10 Essential (primary) hypertension; E78.5 Hyperlipidemia, unspecified; M06.9 Rheumatoid arthritis, unspecified; C92.00 Acute myeloblastic leukemia, not having achieved remission; Z88.0 Allergy status to penicillin; Z88.8 Allergy status to other drugs, medicaments and biological substances; Z79.899 Other long term (current) drug therapy
CPT/HCPCS: 70450; 72110; 72131; 74176; 80048; 80076; 81001; 83605; 83690; 85025; 85049; 85055; 86850; 86900; 86901; 87040; 87077; 87088; 87186; 87635; 93005; 93041; 96365; 96366; 96367; 96375; 96376; 99285; J0131; J1956

== ENCOUNTER → 2023-02-24 | Outpatient (REF) | payer MEDICARE, BC ==
[2023-02-24 13:48] LABS: MAGNESIUM LEVEL 1.8 MG/DL (1.8-2.4)
[2023-02-24 13:53] LABS: THYROID STIMULATING HORMONE 2.853 uIU/ML (0.55-4.78)
== END ==
LOC: M LAB REF 12:52
PROVIDERS: ATTEND Physician Assistant
DX: I48.0 Paroxysmal atrial fibrillation (principal)

== ENCOUNTER → 2023-03-04 | Outpatient (CLI) | payer MEDICARE, BC ==
[~2023-03-04] MED LIST changes: +LIDOCAINE 1% MDV 20ML VIAL As Ordered ONE
[2023-03-04 11:45] VITALS: TEMP 97.6
[2023-03-04 12:35] LABS: BASO % 0.2 % (0.0-1.0); HEMATOCRIT 39.1 % (36.0-47.0); HEMOGLOBIN 12.9 g/dl (12.0-15.5); LYMPH # 1.6 10^3/uL (1.5-5.0); LYMPH % 37.3 % (24.0-44.0); MEAN CORPUSCULAR HEMOGLOBIN 33.7 pg (27.0-33.0); MEAN CORPUSCULAR VOLUME 102.1 fl (80.0-96.0); MONO # 0.2 10^3/uL (0.0-0.8); MONO % 4.3 % (2.0-8.0); NEUTROPHILS # 2.4 10^3/uL (1.5-8.5); NEUTROPHILS % 57.7 % (36.0-66.0); RED BLOOD COUNT 3.83 10^6/uL (4.00-5.40); WHITE BLOOD COUNT 4.2 10^3/uL (4.0-10.0)
[2023-03-04 12:44] LABS: PROTHROMBIN TIME 12.9 SECONDS (12.5-14.5)
[2023-03-04 13:13] LABS: PLATELET COUNT, AUTOMATED 89 10^3/uL (150-450)
[2023-03-04 13:45] VITALS: BP 184/82; O2SAT 96
== END ==
LOC: M IRPRO 11:26
PROVIDERS: ATTEND Specialist
DX: C92.00 Acute myeloblastic leukemia, not having achieved remission (principal)

== ENCOUNTER → 2023-07-29 | Outpatient (CLI) | payer BC, MEDICARE ==
[~2023-07-29] MED LIST changes: +CEPH250T; +CEPHALEXIN; -LIDOCAINE 1% MDV 20ML VIAL As Ordered ONE; -MEGE40SU5; +MEGE40SU6; +NETA2.5D2; +TIMO0.5S20; +XERE5CRE TOP
== END ==
LOC: M WHC 13:33
PROVIDERS: ATTEND Nurse Practitioner Women's Health
DX: Z12.31 Encounter for screening mammogram for malignant neoplasm of breast (principal)

== ENCOUNTER 2023-08-26 10:50 | Inpatient (IN) | payer MEDICARE, OTHER ==
[~2023-08-26] VITALS: Ht 165.1 cm; Wt 83.3 kg
[~2023-08-26 10:50] MED LIST changes: -CEPH250T; +CEPH250T PO; -HYDR-3363; -NETA2.5D2; +NETA2.5D2 OU; -TIMO0.5S20; +TIMO0.5S20 OU; -TRAZ-252; +TRAZ-252 PO
[2023-08-26] MEDS ORDERED: ISOVUE-370 76% 100ML VIAL As Ordered ONE (11:13)
[2023-08-26 11:31] LABS: HEMATOCRIT 35.7 % (36.0-47.0); LYMPH # 0.8 10^3/uL (1.5-5.0); LYMPH % 21.6 % (24.0-44.0); MEAN CORPUSCULAR HEMOGLOBIN 34.7 pg (27.0-33.0); MEAN CORPUSCULAR HGB CONC 33.6 g/dl (32.0-36.5); MEAN CORPUSCULAR VOLUME 103.2 fl (80.0-96.0); MONO # 0.3 10^3/uL (0.0-0.8); MONO % 8.5 % (2.0-8.0); NEUTROPHILS # 2.4 10^3/uL (1.5-8.5); NEUTROPHILS % 69.3 % (36.0-66.0); PLATELET COUNT, AUTOMATED 105 10^3/uL (150-450); RED BLOOD COUNT 3.46 10^6/uL (4.00-5.40); WHITE BLOOD COUNT 3.5 10^3/uL (4.0-10.0)
[2023-08-26 11:50] LABS: INR 1.06; PROTHROMBIN TIME 13.5 SECONDS (12.5-14.5)
[2023-08-26 11:54] LABS: CK-MB VALUE MASS < 1.0 NG/ML (<3.6)
[2023-08-26 11:56] LABS: CPK CREATINE PHOSPHOKINASE 68 U/L (34-145); MB/CK RELATIVE INDEX 1.47 (< OR =4)
[2023-08-26 11:57] LABS: ALBUMIN 3.7 G/DL (3.2-5.2); ALKALINE PHOSPHATASE 97 U/L (46-116); ALT/SGPT 29 U/L (7.0-40); AST/SGOT 25 U/L (<34); BILIRUBIN,TOTAL 0.4 MG/DL (0.3-1.2); BLOOD UREA NITROGEN 15 MG/DL (9-23); CALCIUM LEVEL 9.1 MG/DL (8.3-10.6); CARBON DIOXIDE LEVEL 26 MMOL/L (20-31); CHLORIDE LEVEL 107 MMOL/L (98-107); CHOLESTEROL LEVEL 263 MG/DL (<200); CHOLESTEROL RISK RATIO 4.58 (<5); GLOMERULAR FILTRATION RATE > 60.0 (>32); GLUCOSE, FASTING 136 MG/DL (74-106); HDL CHOLESTEROL 57.4 MG/DL (>40); LDL CHOLESTEROL 163.6 MG/DL (<100); NON-HDL-C 205.6 MG/DL; POTASSIUM SERUM 3.8 MMOL/L (3.5-5.1); SODIUM LEVEL 142 MMOL/L (136-145); TRIGLYCERIDES LEVEL 210 MG/DL (<150)
[2023-08-26] MEDS ORDERED: ESTR1CRE VA (14:17)
[2023-08-26] MEDS ORDERED: MULTTAB61 PO (14:17)
[2023-08-26] MEDS ORDERED: HOME MED LIST COMPLETE! XX SCH (14:20)
[2023-08-26] MEDS ORDERED: ACETAMINOPHEN TAB 650MG DOSE (2X325MG) PO PRN (16:50)
[2023-08-26] MEDS: ASPIRIN 81MG ENTERIC TABLET PO SCH (17:08)
[2023-08-26] MEDS: ATORVASTATIN 20 MG TAB PO SCH (21:56)
[2023-08-26] MEDS: traZODone 50 MG TAB PO SCH (21:56)
[2023-08-26 22:54] VITALS: BP 167/74; TEMP 97; O2SAT 95
[2023-08-27] VITALS (11 sets, daily range): BP systolic 84–152; BP diastolic 53–88; TEMP 96.9–98.2; O2SAT 92–96
[2023-08-27 08:40] LABS: HEMATOCRIT 35.6 % (36.0-47.0); HEMOGLOBIN 12.3 g/dl (12.0-15.5); LYMPH # 1.7 10^3/uL (1.5-5.0); LYMPH % 56.2 % (24.0-44.0); MEAN CORPUSCULAR HEMOGLOBIN 35.8 pg (27.0-33.0); MEAN CORPUSCULAR HGB CONC 34.6 g/dl (32.0-36.5); MEAN CORPUSCULAR VOLUME 103.5 fl (80.0-96.0); MONO # 0.1 10^3/uL (0.0-0.8); MONO % 4.7 % (2.0-8.0); NEUTROPHILS # 1.2 10^3/uL (1.5-8.5); NEUTROPHILS % 39.1 % (36.0-66.0); RED BLOOD COUNT 3.44 10^6/uL (4.00-5.40)
[2023-08-27 09:11] LABS: CREATININE FOR GFR 0.99 MG/DL (0.55-1.30); GLOMERULAR FILTRATION RATE 57.5 (>32); MAGNESIUM LEVEL 1.8 MG/DL (1.8-2.4); POTASSIUM SERUM 3.8 MMOL/L (3.5-5.1)
[2023-08-27] MEDS: ACETAMINOPHEN TAB 650MG DOSE (2X325MG) PO PRN (09:14)
[2023-08-27] MEDS: SERTRALINE HCL 50 MG TAB PO SCH (09:14)
[2023-08-27] MEDS: CEPHALEXIN 250MG CAPSULE PO SCH (09:14)
[2023-08-27] MEDS: TIMOLOL MALEATE 0.5% OPHTH SOLN 5 ML OU SCH (09:14)
[2023-08-27] MEDS: AMIODARONE 200 MG TAB (PACERONE) PO SCH (09:14)
[2023-08-27] MEDS: PANTOPRAZOLE 40MG TAB (PROTONIX) PO SCH (09:14)
[2023-08-27 09:49] LABS: PLATELET COUNT, AUTOMATED 83 10^3/uL (150-450)
[2023-08-27] MEDS: LR 500 ML IV SCH (18:49)
[2023-08-27] MEDS: LR 1,000 ML IV SCH (21:23)
[2023-08-28 03:52] VITALS: BP 98/50; TEMP 97.6; O2SAT 95
[2023-08-28 05:32] LABS: HEMATOCRIT 31.9 % (36.0-47.0); HEMOGLOBIN 10.8 g/dl (12.0-15.5); LYMPH # 1.6 10^3/uL (1.5-5.0); LYMPH % 56.6 % (24.0-44.0); MEAN CORPUSCULAR HEMOGLOBIN 35.4 pg (27.0-33.0); MEAN CORPUSCULAR HGB CONC 33.9 g/dl (32.0-36.5); MEAN CORPUSCULAR VOLUME 104.6 fl (80.0-96.0); MONO # 0.2 10^3/uL (0.0-0.8); MONO % 5.5 % (2.0-8.0); NEUTROPHILS # 1.1 10^3/uL (1.5-8.5); NEUTROPHILS % 37.6 % (36.0-66.0); RED BLOOD COUNT 3.05 10^6/uL (4.00-5.40); WHITE BLOOD COUNT 2.9 10^3/uL (4.0-10.0)
[2023-08-28 05:33] LABS: PLATELET COUNT, AUTOMATED 75 10^3/uL (150-450)
[2023-08-28 05:55] LABS: CREATININE FOR GFR 1.01 MG/DL (0.55-1.30); GLOMERULAR FILTRATION RATE 56.1 (>32); MAGNESIUM LEVEL 1.6 MG/DL (1.8-2.4); POTASSIUM SERUM 4.2 MMOL/L (3.5-5.1)
[2023-08-28 06:46] VITALS: BP 100/55; TEMP 97.8; O2SAT 92
[2023-08-28] MEDS: MAG SULF 1GM/100ML (MAG RUN) 1 GM in IV 1 EA IV ONE (09:07)
[2023-08-28 11:25] VITALS: BP_SYST 113; BP_SYST 116; BP_DIAS 64; BP_DIAS 66; BP_DIAS 69
[2023-08-28 11:48] VITALS: BP 122/59; TEMP 97; O2SAT 95
== END 2023-08-28 13:48 | disposition home or self-care (01) | DRG 92 ==
LOC: M ED 10:50 → M ED INP 14:31 → M PCU 22:50
PROVIDERS: ADMIT Hospitalist; ATTEND Hospitalist
DX: R47.81 Slurred speech (principal); C92.00 Acute myeloblastic leukemia, not having achieved remission; R26.81 Unsteadiness on feet; E78.5 Hyperlipidemia, unspecified; F41.9 Anxiety disorder, unspecified; Z88.0 Allergy status to penicillin; I95.1 Orthostatic hypotension; F32.A Depression, unspecified; M06.9 Rheumatoid arthritis, unspecified; I48.91 Unspecified atrial fibrillation; I10 Essential (primary) hypertension; R53.1 Weakness; R42 Dizziness and giddiness; Z66 Do not resuscitate; Z79.69 Long term (current) use of other immunomodulators and immunosuppressants; Z79.899 Other long term (current) drug therapy

== ENCOUNTER 2023-09-26 15:09 | Inpatient (IN) | payer OTHER ==
[~2023-09-26] VITALS: Ht 167.6 cm; Wt 80.8 kg
[~2023-09-26 15:09] MED LIST changes: +ESTR1CRE VA; +MULTTAB61 PO
[2023-09-26 17:23] LABS: HEMOGLOBIN 10.1 g/dl (12.0-15.5); LYMPH # 0.8 10^3/uL (1.5-5.0); LYMPH % 34.2 % (24.0-44.0); MEAN CORPUSCULAR HEMOGLOBIN 35.3 pg (27.0-33.0); MEAN CORPUSCULAR HGB CONC 33.7 g/dl (32.0-36.5); MEAN CORPUSCULAR VOLUME 104.9 fl (80.0-96.0); MONO # 0.2 10^3/uL (0.0-0.8); MONO % 10.4 % (2.0-8.0); NEUTROPHILS # 1.2 10^3/uL (1.5-8.5); NEUTROPHILS % 54.5 % (36.0-66.0); RED BLOOD COUNT 2.86 10^6/uL (4.00-5.40); WHITE BLOOD COUNT 2.2 10^3/uL (4.0-10.0)
[2023-09-26 17:25] LABS: CK-MB VALUE MASS < 1.0 NG/ML (<3.6); LIPASE 19 U/L (12-53)
[2023-09-26 17:27] LABS: CPK CREATINE PHOSPHOKINASE 70 U/L (34-145); MB/CK RELATIVE INDEX 1.42 (< OR =4)
[2023-09-26 17:29] LABS: FREE T4 1.47 NG/DL (0.89-1.76); PLATELET COUNT, AUTOMATED 59 10^3/uL (150-450); THYROID STIMULATING HORMONE 2.057 uIU/ML (0.55-4.78)
[2023-09-26 17:37] LABS: INR 1.09; PARTIAL THROMBOPLASTIN TIME 23.6 SECONDS (24.8-34.2); PROTHROMBIN TIME 13.8 SECONDS (12.5-14.5)
[2023-09-26 17:38] LABS: ALBUMIN 3.9 G/DL (3.2-5.2); ALKALINE PHOSPHATASE 77 U/L (46-116); ALT/SGPT 17 U/L (7.0-40); AST/SGOT 15 U/L (<34); BILIRUBIN,DIRECT 0.3 MG/DL (<0.4); BILIRUBIN,TOTAL 0.9 MG/DL (0.3-1.2); BLOOD UREA NITROGEN 10 MG/DL (9-23); CALCIUM LEVEL 9.2 MG/DL (8.3-10.6); CARBON DIOXIDE LEVEL 28 MMOL/L (20-31); CHLORIDE LEVEL 104 MMOL/L (98-107); CREATININE FOR GFR 0.88 MG/DL (0.55-1.30); GLOMERULAR FILTRATION RATE > 60.0 (>32); GLUCOSE, FASTING 110 MG/DL (74-106); MAGNESIUM LEVEL 1.6 MG/DL (1.8-2.4); POTASSIUM SERUM 3.9 MMOL/L (3.5-5.1); SODIUM LEVEL 139 MMOL/L (136-145); TOTAL PROTEIN 6.5 G/DL (5.7-8.2)
[2023-09-26] MEDS: NS 500 ML IV ONE (18:05)
[2023-09-26] MEDS: LIDOCAINE 2% 5ML JELLY UROJET TOP ONE (18:10)
[2023-09-26 18:12] LABS: RSV AMPLIFICATION NEGATIVE (NEGATIVE)
[2023-09-26 18:47] LABS: CK-MB VALUE MASS < 1.0 NG/ML (<3.6)
[2023-09-26 18:48] LABS: CPK CREATINE PHOSPHOKINASE 75 U/L (34-145); MB/CK RELATIVE INDEX 1.33 (< OR =4)
[2023-09-26] MEDS ORDERED: MOM 30ML SUSPENSION UDC PO PRN (19:35)
[2023-09-26] MEDS ORDERED: ACET1TAB55 PO (19:35)
[2023-09-26] MEDS ORDERED: MAALOX 30 ML SUSP *UDC PO PRN (19:35)
[2023-09-26] MEDS ORDERED: HOME MED LIST COMPLETE! XX SCH (19:35)
[2023-09-26] MEDS: ACETAMINOPHEN TAB 650MG DOSE (2X325MG) PO PRN (20:38)
[2023-09-26] MEDS: MAG SULF 1GM/100ML (MAG RUN) 1 GM in IV 1 EA IV ONE (20:38)
[2023-09-26 22:54] VITALS: BP 144/66; TEMP 98.3; O2SAT 93
[2023-09-26] MEDS: DOCUSATE SODIUM 100MG CAPSULE PO SCH (23:32)
[2023-09-27] VITALS (25 sets, daily range): BP systolic 123–186; BP diastolic 58–96; TEMP 97.6–98.1; O2SAT 88–96
[2023-09-27 07:38] LABS: HEMATOCRIT 28.1 % (36.0-47.0); HEMOGLOBIN 9.6 g/dl (12.0-15.5); MEAN CORPUSCULAR HEMOGLOBIN 36.2 pg (27.0-33.0); MEAN CORPUSCULAR HGB CONC 34.2 g/dl (32.0-36.5); PLATELET COUNT, AUTOMATED 42 10^3/uL (150-450); RED BLOOD COUNT 2.65 10^6/uL (4.00-5.40); WHITE BLOOD COUNT 1.7 10^3/uL (4.0-10.0)
[2023-09-27 08:14] LABS: PROCALCITONIN 0.09 ng/ml
[2023-09-27 08:16] LABS: ALBUMIN 3.3 G/DL (3.2-5.2); ALKALINE PHOSPHATASE 68 U/L (46-116); ALT/SGPT 15 U/L (7.0-40); AST/SGOT 14 U/L (<34); BILIRUBIN,TOTAL 0.8 MG/DL (0.3-1.2); BLOOD UREA NITROGEN 10 MG/DL (9-23); CALCIUM LEVEL 8.8 MG/DL (8.3-10.6); CARBON DIOXIDE LEVEL 27 MMOL/L (20-31); CHLORIDE LEVEL 108 MMOL/L (98-107); CREATININE FOR GFR 0.91 MG/DL (0.55-1.30); GLOMERULAR FILTRATION RATE > 60.0 (>32); GLUCOSE, FASTING 106 MG/DL (74-106); MAGNESIUM LEVEL 1.7 MG/DL (1.8-2.4); SODIUM LEVEL 142 MMOL/L (136-145); TOTAL PROTEIN 5.7 G/DL (5.7-8.2)
[2023-09-27] MEDS: AMIODARONE 200 MG TAB (PACERONE) PO SCH (11:10)
[2023-09-27] MEDS: TIMOLOL MALEATE 0.5% OPHTH SOLN 5 ML OU SCH (11:10)
[2023-09-27] MEDS: PANTOPRAZOLE 40MG TAB (PROTONIX) PO SCH (11:10)
[2023-09-27] MEDS: CEPHALEXIN 250MG CAPSULE PO SCH (11:11)
[2023-09-27] MEDS: SERTRALINE HCL 50 MG TAB PO SCH (11:11)
[2023-09-27] MEDS: MAG SULF 1GM/100ML (MAG RUN) 1 GM in IV 1 EA IV ONE (11:13)
[2023-09-27] MEDS ORDERED: VANCOMYCIN HCL 1,000 MG, VIAL MATE ADAPTER 1 EACH in D5W 250 ML IV SCH (15:50)
[2023-09-27] MEDS: VANCOMYCIN HCL 1,000 MG, VIAL MATE ADAPTER 1 EACH in D5W 250 ML IV ONE (18:37)
[2023-09-27] MEDS: VANCOMYCIN HCL 750 MG, VIAL MATE ADAPTER 1 EACH in D5W 250 ML IV ONE (20:24)
[2023-09-28] VITALS (27 sets, daily range): BP systolic 109–140; BP diastolic 53–78; TEMP 97.4–98.2; O2SAT 85–97
[2023-09-28] MEDS: VANCOMYCIN HCL 750 MG, VIAL MATE ADAPTER 1 EACH in D5W 250 ML IV SCH (04:13)
[2023-09-28 08:25] LABS: HEMATOCRIT 28.3 % (36.0-47.0); HEMOGLOBIN 9.6 g/dl (12.0-15.5); LYMPH # 0.9 10^3/uL (1.5-5.0); LYMPH % 53.1 % (24.0-44.0); MEAN CORPUSCULAR HEMOGLOBIN 36.2 pg (27.0-33.0); MEAN CORPUSCULAR HGB CONC 33.9 g/dl (32.0-36.5); MEAN CORPUSCULAR VOLUME 106.8 fl (80.0-96.0); MONO # 0.1 10^3/uL (0.0-0.8); NEUTROPHILS % 38.9 % (36.0-66.0); RED BLOOD COUNT 2.65 10^6/uL (4.00-5.40); WHITE BLOOD COUNT 1.6 10^3/uL (4.0-10.0)
[2023-09-28 08:29] LABS: NEUTROPHILS # 0.6 10^3/uL (1.5-8.5); PLATELET COUNT, AUTOMATED 49 10^3/uL (150-450)
[2023-09-28 08:54] LABS: CALCIUM LEVEL 8.7 MG/DL (8.3-10.6); CREATININE FOR GFR 0.99 MG/DL (0.55-1.30); GLOMERULAR FILTRATION RATE 57.5 (>32); POTASSIUM SERUM 4.3 MMOL/L (3.5-5.1)
[2023-09-28] MEDS: predniSONE 20 MG TAB PO SCH (15:24)
[2023-09-28] MEDS: CEFDINIR 300 MG CAP (OMNICEF) PO SCH (20:06)
[2023-09-29] VITALS (23 sets, daily range): BP systolic 99–149; BP diastolic 54–73; TEMP 97–98.4; O2SAT 90–98
[2023-09-29 05:38] LABS: HEMATOCRIT 27.6 % (36.0-47.0); HEMOGLOBIN 9.5 g/dl (12.0-15.5); LYMPH # 0.7 10^3/uL (1.5-5.0); LYMPH % 40.1 % (24.0-44.0); MEAN CORPUSCULAR HEMOGLOBIN 36.4 pg (27.0-33.0); MEAN CORPUSCULAR HGB CONC 34.4 g/dl (32.0-36.5); MEAN CORPUSCULAR VOLUME 105.7 fl (80.0-96.0); MONO # 0.1 10^3/uL (0.0-0.8); MONO % 4.9 % (2.0-8.0); NEUTROPHILS % 54.5 % (36.0-66.0); RED BLOOD COUNT 2.61 10^6/uL (4.00-5.40)
[2023-09-29 05:50] LABS: PLATELET COUNT, AUTOMATED 47 10^3/uL (150-450)
[2023-09-29 05:51] LABS: WHITE BLOOD COUNT 1.8 10^3/uL (4.0-10.0)
[2023-09-29 06:01] LABS: BLOOD UREA NITROGEN 15 MG/DL (9-23); CALCIUM LEVEL 8.9 MG/DL (8.3-10.6); CARBON DIOXIDE LEVEL 27 MMOL/L (20-31); CHLORIDE LEVEL 107 MMOL/L (98-107); CREATININE FOR GFR 0.91 MG/DL (0.55-1.30); GLOMERULAR FILTRATION RATE > 60.0 (>32); GLUCOSE, FASTING 169 MG/DL (74-106); POTASSIUM SERUM 4.4 MMOL/L (3.5-5.1); SODIUM LEVEL 140 MMOL/L (136-145)
[2023-09-30 06:07] LABS: HEMOGLOBIN 9.3 g/dl (12.0-15.5); LYMPH # 1.7 10^3/uL (1.5-5.0); LYMPH % 53.2 % (24.0-44.0); MEAN CORPUSCULAR HGB CONC 34.4 g/dl (32.0-36.5); MEAN CORPUSCULAR VOLUME 104.7 fl (80.0-96.0); MONO # 0.4 10^3/uL (0.0-0.8); MONO % 11.1 % (2.0-8.0); NEUTROPHILS # 1.1 10^3/uL (1.5-8.5); NEUTROPHILS % 34.7 % (36.0-66.0); RED BLOOD COUNT 2.58 10^6/uL (4.00-5.40); WHITE BLOOD COUNT 3.1 10^3/uL (4.0-10.0)
[2023-09-30 06:11] LABS: PLATELET COUNT, AUTOMATED 52 10^3/uL (150-450)
[2023-09-30 06:28] LABS: BLOOD UREA NITROGEN 20 MG/DL (9-23); CARBON DIOXIDE LEVEL 28 MMOL/L (20-31); CHLORIDE LEVEL 107 MMOL/L (98-107); CREATININE FOR GFR 0.89 MG/DL (0.55-1.30); GLOMERULAR FILTRATION RATE > 60.0 (>32); GLUCOSE, FASTING 111 MG/DL (74-106); POTASSIUM SERUM 3.9 MMOL/L (3.5-5.1); SODIUM LEVEL 142 MMOL/L (136-145)
[2023-09-30 07:26] VITALS: BP 140/64; TEMP 98.1; O2SAT 95
[2023-09-30 08:38] VITALS: BP_SYST 131; BP_SYST 140; BP_SYST 169; BP_DIAS 57; BP_DIAS 64; BP_DIAS 68
[2023-09-30 11:38] VITALS: BP_SYST 113; BP_SYST 131; BP_DIAS 58; BP_DIAS 62; BP_DIAS 70
[2023-09-30 15:41] VITALS: BP 112/55; TEMP 97.7; O2SAT 95
[2023-09-30 21:00] VITALS: BP 117/57; TEMP 96.9; O2SAT 94
[2023-10-01] VITALS (10 sets, daily range): BP systolic 112–144; BP diastolic 54–63; TEMP 97.3–98.4; O2SAT 89–98
[2023-10-01 06:42] LABS: HEMATOCRIT 27.1 % (36.0-47.0); HEMOGLOBIN 9.3 g/dl (12.0-15.5); MEAN CORPUSCULAR HGB CONC 34.3 g/dl (32.0-36.5); RED BLOOD COUNT 2.58 10^6/uL (4.00-5.40); WHITE BLOOD COUNT 3.1 10^3/uL (4.0-10.0)
[2023-10-01 07:29] LABS: PLATELET COUNT, AUTOMATED 54 10^3/uL (150-450)
[2023-10-01 07:35] LABS: CALCIUM LEVEL 8.8 MG/DL (8.3-10.6); CREATININE FOR GFR 0.99 MG/DL (0.55-1.30); GLOMERULAR FILTRATION RATE 57.5 (>32); POTASSIUM SERUM 3.9 MMOL/L (3.5-5.1)
[2023-10-01 08:27] LABS: ATYPICAL LYMPH 6 % (0-5); LYMPHOCYTES 57 % (16-44); MONOCYTES 4 % (0-5); NEUTROPHILS 33 % (28-66)
[2023-10-01 08:28] LABS: ANISOCYTOSIS 1+
[2023-10-01 08:29] LABS: PLATELET ESTIMATE DECREASED (NORMAL)
[2023-10-02 03:57] VITALS: BP 106/52; TEMP 97.2; O2SAT 96
[2023-10-02 06:59] LABS: HEMATOCRIT 27.1 % (36.0-47.0); HEMOGLOBIN 9.6 g/dl (12.0-15.5); LYMPH # 2.1 10^3/uL (1.5-5.0); LYMPH % 64.3 % (24.0-44.0); MEAN CORPUSCULAR HEMOGLOBIN 36.6 pg (27.0-33.0); MEAN CORPUSCULAR HGB CONC 35.4 g/dl (32.0-36.5); MEAN CORPUSCULAR VOLUME 103.4 fl (80.0-96.0); MONO # 0.2 10^3/uL (0.0-0.8); MONO % 5.5 % (2.0-8.0); NEUTROPHILS % 29.3 % (36.0-66.0); RED BLOOD COUNT 2.62 10^6/uL (4.00-5.40); WHITE BLOOD COUNT 3.3 10^3/uL (4.0-10.0)
[2023-10-02 07:00] LABS: PLATELET COUNT, AUTOMATED 59 10^3/uL (150-450)
[2023-10-02 07:21] LABS: BLOOD UREA NITROGEN 22 MG/DL (9-23); CALCIUM LEVEL 9.3 MG/DL (8.3-10.6); CARBON DIOXIDE LEVEL 29 MMOL/L (20-31); CHLORIDE LEVEL 106 MMOL/L (98-107); CREATININE FOR GFR 0.93 MG/DL (0.55-1.30); GLOMERULAR FILTRATION RATE > 60.0 (>32); GLUCOSE, FASTING 95 MG/DL (74-106); POTASSIUM SERUM 4.1 MMOL/L (3.5-5.1); SODIUM LEVEL 142 MMOL/L (136-145)
[2023-10-02 08:08] VITALS: BP 114/61; TEMP 97.1; O2SAT 95
[2023-10-02 08:20] VITALS: BP 131/66; TEMP 97.9; O2SAT 94
[2023-10-02] MEDS ORDERED: PRED20TA PO (10:59)
[2023-10-02] MEDS ORDERED: CEFD300CAP PO (10:59)
[2023-10-02 12:00] VITALS: BP 122/58; TEMP 97.3; O2SAT 96
== END 2023-10-02 16:37 | DRG 312 ==
LOC: M ED 15:09 → M ED INP 19:35 → M PCU 22:56 → M MSPAV 10-02 08:31
PROVIDERS: ADMIT Internal Medicine; ATTEND Internal Medicine Nephrology
PROC: B246ZZZ Ultrasonography of Right and Left Heart (ICD-10-PCS; principal; 2023-09-27)
DX: I95.1 Orthostatic hypotension (principal); D61.810 Antineoplastic chemotherapy induced pancytopenia; C92.01 Acute myeloblastic leukemia, in remission; R29.6 Repeated falls; M06.9 Rheumatoid arthritis, unspecified; H40.9 Unspecified glaucoma; E78.5 Hyperlipidemia, unspecified; R73.03 Prediabetes; I10 Essential (primary) hypertension; L12.1 Cicatricial pemphigoid; R42 Dizziness and giddiness; I48.91 Unspecified atrial fibrillation; F41.9 Anxiety disorder, unspecified; J32.3 Chronic sphenoidal sinusitis; F32.A Depression, unspecified; Z86.73 Personal history of transient ischemic attack (TIA), and cerebral infarction without residual deficits; Z90.49 Acquired absence of other specified parts of digestive tract; Z96.643 Presence of artificial hip joint, bilateral; Z98.41 Cataract extraction status, right eye; Z98.42 Cataract extraction status, left eye; Z96.1 Presence of intraocular lens; Z79.899 Other long term (current) drug therapy; Z88.0 Allergy status to penicillin; Z91.048 Other nonmedicinal substance allergy status; S92.341A Displaced fracture of fourth metatarsal bone, right foot, initial encounter for closed fracture; S92.321A Displaced fracture of second metatarsal bone, right foot, initial encounter for closed fracture; S92.331A Displaced fracture of third metatarsal bone, right foot, initial encounter for closed fracture; W19.XXXA Unspecified fall, initial encounter; Y93.9 Activity, unspecified; Y99.8 Other external cause status; Y92.9 Unspecified place or not applicable